=== PATIENT | female | born 1955 | race Caucasian/White ===

== ENCOUNTER 2023-01-28 12:11 | Day surgery (SDC) | payer BC ==
[~2023-01-28] VITALS: Ht 165.1 cm; Wt 76.7 kg
[2023-01-28] MEDS ORDERED: EUTHYROX50 MCG PO (12:27)
[2023-01-28] MEDS ORDERED: ATOR20 PO (12:27)
[2023-01-28] MEDS ORDERED: OMEP20ER PO (12:28)
[2023-01-28] MEDS ORDERED: FAMO20 (12:28)
[2023-01-28] MEDS ORDERED: LISI20 PO (12:28)
[2023-01-28 14:00] VITALS: BP 120/64
== END 2023-01-28 14:12 | disposition home or self-care (01) ==
LOC: ORSCSDS 12:11
PROVIDERS: Student in an Organized Health Care Education/Training Program
PROC: 0DB58ZX Excision of Esophagus, Via Natural or Artificial Opening Endoscopic, Diagnostic (ICD-10-PCS; principal; 2023-01-28 13:45)
PROC: 0DBK8ZX Excision of Ascending Colon, Via Natural or Artificial Opening Endoscopic, Diagnostic (ICD-10-PCS; principal; 2023-01-28 13:45)
PROC: 0D758ZZ Dilation of Esophagus, Via Natural or Artificial Opening Endoscopic (ICD-10-PCS; principal; 2023-01-28 13:45)
PROC: 0DB68ZX Excision of Stomach, Via Natural or Artificial Opening Endoscopic, Diagnostic (ICD-10-PCS; principal; 2023-01-28 13:45)
PROC: 0DBL8ZX Excision of Transverse Colon, Via Natural or Artificial Opening Endoscopic, Diagnostic (ICD-10-PCS; principal; 2023-01-28 13:45)
DX: R13.10 Dysphagia, unspecified (principal); K44.9 Diaphragmatic hernia without obstruction or gangrene; K31.7 Polyp of stomach and duodenum; K29.40 Chronic atrophic gastritis without bleeding; K21.00 Gastro-esophageal reflux disease with esophagitis, without bleeding; D12.2 Benign neoplasm of ascending colon; D12.3 Benign neoplasm of transverse colon; K57.50 Diverticulosis of both small and large intestine without perforation or abscess without bleeding; K64.8 Other hemorrhoids; Z86.010 Personal history of colon polyps; I10 Essential (primary) hypertension; E78.5 Hyperlipidemia, unspecified; E03.9 Hypothyroidism, unspecified; Z79.899 Other long term (current) drug therapy
CPT/HCPCS: 88305; 88342; C1726; J2704; J7120

== ENCOUNTER 2023-09-09 10:04 | Day surgery (SDC) | payer BC ==
[~2023-09-09] VITALS: Ht 165.1 cm; Wt 79.2 kg
[~2023-09-09 10:04] MED LIST: ATOR20 PO; FAMO20; LISI20 PO; Naltrexone HCl50 MG PO; OMEP20ER PO; PRESERVISION A1 EAC1 PO; SYNTHROID50 MC1 PO
--- NOTE | 2023-09-09 10:26 | NUR ---
09/09/23 1026 Sharif Roman CALL LIGHT WITHIN REACH. PLEDGET IN AT 1021
[2023-09-09 11:20] VITALS: BP 133/95
== END 2023-09-09 11:37 | disposition home or self-care (01) ==
LOC: ORSCSDS 10:04
PROVIDERS: Student in an Organized Health Care Education/Training Program
PROC: 08RK3JZ Replacement of Left Lens with Synthetic Substitute, Percutaneous Approach (ICD-10-PCS; principal; 2023-09-09 11:30)
DX: H25.13 Age-related nuclear cataract, bilateral (principal); I10 Essential (primary) hypertension; K21.9 Gastro-esophageal reflux disease without esophagitis; E03.9 Hypothyroidism, unspecified; Z79.899 Other long term (current) drug therapy
CPT/HCPCS: J2250; J3010; J7040; V2632

== ENCOUNTER 2023-09-23 09:58 | Day surgery (SDC) | payer BC ==
[~2023-09-23] VITALS: Ht 165.1 cm; Wt 77.5 kg
[~2023-09-23 09:58] MED LIST changes: +Balanced Salt Epinephrine Irrigation Solution 500 mL IR SCH; +Lidocaine HCl/Pf 1% 5 ML VIAL XX SCH; +Moxifloxacin HCL 0.5 MG/0.1 ML 0.4MLSYR RIGHTEYE SCH; +NS 500 ML IV ONE; +PHENYLEPHRINE\\TROPICAMIDE\\TETRACAINE OPHTHALMIC DILATING SOLN RIGHTEYE PRN; +Povidone-Iodine 450 DROP/30 ML Solution ONE; +Povidone-Iodine 450 DROP/30 ML Solution RIGHTEYE SCH
[2023-09-23] MEDS ORDERED: Phenylephrine Frt 10% Opth (ORSC) ONE (10:08)
[2023-09-23] MEDS ORDERED: IBUP200 PO (10:28)
--- NOTE | 2023-09-23 10:29 | NUR ---
09/23/23 1030 Marian Villeda AT [address] AT 1029
[2023-09-23] MEDS ORDERED: NS 500 ML IV ONE (10:33)
[2023-09-23] MEDS ORDERED: FentaNYL Citrate 50 MCG/ML 2 ML Injection ONE (10:57)
[2023-09-23] MEDS ORDERED: Midazolam HCl 1MG / ML 2ML Vial ONE (10:57)
[2023-09-23] MEDS ORDERED: Tetracaine HCl 0.5% Opth Soln 15 ml XX ONE (11:16)
[2023-09-23] MEDS ORDERED: Ondansetron HCl 2 MG / ML 2ML Vial ONE ×2 (11:18→11:21)
[2023-09-23 11:51] VITALS: BP 140/83
== END 2023-09-23 11:47 | disposition home or self-care (01) ==
LOC: ORSCSDS 09:58
PROVIDERS: Student in an Organized Health Care Education/Training Program
PROC: 08RJ3JZ Replacement of Right Lens with Synthetic Substitute, Percutaneous Approach (ICD-10-PCS; principal; 2023-09-23 11:30)
DX: H25.11 Age-related nuclear cataract, right eye (principal); Z96.1 Presence of intraocular lens; E07.9 Disorder of thyroid, unspecified; I10 Essential (primary) hypertension; K21.9 Gastro-esophageal reflux disease without esophagitis; Z79.899 Other long term (current) drug therapy
CPT/HCPCS: J2250; J2405; J3010; J7040; V2632

== ENCOUNTER 2024-02-29 17:00 | Emergency (ER) | payer BC ==
[~2024-02-29] VITALS: Ht 162.6 cm; Wt 75.3 kg
[~2024-02-29 17:00] MED LIST changes: -Balanced Salt Epinephrine Irrigation Solution 500 mL IR SCH; +IBUP200 PO; -Lidocaine HCl/Pf 1% 5 ML VIAL XX SCH; -Moxifloxacin HCL 0.5 MG/0.1 ML 0.4MLSYR RIGHTEYE SCH; -NS 500 ML IV ONE; -PHENYLEPHRINE\\TROPICAMIDE\\TETRACAINE OPHTHALMIC DILATING SOLN RIGHTEYE PRN; -Povidone-Iodine 450 DROP/30 ML Solution ONE; -Povidone-Iodine 450 DROP/30 ML Solution RIGHTEYE SCH
[2024-02-29] MEDS ORDERED: Ondansetron HCl 2 MG / ML 2ML Vial IV ONE ×2 (17:15→18:35)
[2024-02-29] MEDS ORDERED: MULVITA PO (17:33)
[2024-02-29] MEDS ORDERED: Avastin25 MG/ML (17:33)
[2024-02-29 17:39] LABS: BASOPHILS ABSOLUTE AUTO 0.03 K/mm3 (0.00-0.23); BASOPHILS PERCENT AUTO 0 % (0-2); EOSINOPHILS ABSOLUTE AUTO 0.07 K/mm3 (0.00-0.68); EOSINOPHILS PERCENT AUTO 1 % (0-6); Hematocrit 40.5 % (33.0-51.0); Hemoglobin 13.7 g/dL (11.5-16.0); IMMATURE GRAN ABSOLUTE AUTO 0.04 K/mm3 (0.00-0.10); IMMATURE GRAN PERCENT AUTO 0 % (0-1); LYMPHOCYTES PERCENT AUTO 13 % (21-46); MONOCYTES ABSOLUTE AUTO 0.99 K/mm3 (0.16-1.47); MONOCYTES PERCENT AUTO 8 % (4-13); Mean Corpuscular HGB 30.5 pg (26.0-34.0); Mean Corpuscular HGB Conc 33.8 g/dL (31.5-36.5); Mean Corpuscular Volume 90 fL (80-100); NEUTROPHILS ABSOLUTE AUTO 9.54 K/mm3 (1.96-9.15); NEUTROPHILS PERCENT AUTO 78 % (41-73); Platelet Count 367 K/mm3 (150-400); RDW Coefficient Variation 13.2 % (11.7-14.2); RDW Standard Deviation 43.8 fL (35.1-46.3); Red Blood Cell Count 4.49 M/mm3 (3.80-5.20); White Blood Cell Count 12.27 K/mm3 (4.00-11.30)
[2024-02-29 17:57] LABS: Albumin, Blood 4.2 g/dL (3.4-5.0); Albumin/Globulin Ratio 1.1 (0.8-1.8); Bilirubin, Total 0.8 mg/dL (0.1-1.0); Bun/Creatinine Ratio 18.6 (12.0-20.0); Calcium, Blood 9.2 mg/dL (8.5-10.1); Creatinine, Blood 0.75 mg/dL (0.40-1.00); Globulin, Blood 3.7 g/dL (2.2-4.0); Potassium, Blood 3.9 mmol/L (3.5-5.5); Total Protein, Blood 7.9 g/dL (6.4-8.2)
[2024-02-29 18:08] LABS: Source, Urine Clean Catch
[2024-02-29 18:10] LABS: Appearance, Urine Clear (Clear); Bilirubin, Urine Neg (Neg); Blood, Urine Neg (Neg); Color, Urine Yellow (P-Yellow); Glucose Qualitative, Urine Neg (Neg); Ketones, Urine Neg (Neg); Leukocyte Esterase, Urine Neg (Neg); Nitrite, Urine Neg (Neg); Protein, Urine Neg (Neg); Specific Gravity, Urine 1.015 (1.003-1.022); Urobilinogen, Urine NORM (Normal)
[2024-02-29] MEDS ORDERED: Morphine Sulfate 4 MG/1 ML Injection IV ONE (18:35)
[2024-02-29] MEDS ORDERED: AMOCLA875 PO (18:37)
[2024-02-29] MEDS ORDERED: ONDA4ODT MM (18:37)
[2024-02-29] MEDS ORDERED: Percocet 5-3251 EACH PO (18:37)
[2024-02-29] MEDS ORDERED: RX Prepack 6 Tabs Oxycodone 5mg UD ONE (18:40)
[2024-02-29] MEDS ORDERED: Amoxicillin/Clavulanate K 875 MG Tab PO ONE (18:40)
[2024-02-29] MEDS ORDERED: RX Prepack 2 Tabs Ondansetron ODT 4MG UD ONE (18:40)
[2024-02-29 18:56] VITALS: BP 155/91
== END 2024-02-29 19:05 | disposition home or self-care (01) ==
LOC: ER 17:00
PROVIDERS: Physician Assistant
DX: K57.32 Diverticulitis of large intestine without perforation or abscess without bleeding (principal); Z88.7 Allergy status to serum and vaccine; Z88.8 Allergy status to other drugs, medicaments and biological substances; Z79.899 Other long term (current) drug therapy
CPT/HCPCS: 74177; 80053; 81003; 85025; A9270; J2270; J2405; Q9967